=== PATIENT | female | born 1955 | race Caucasian/White ===

== ENCOUNTER 2020-10-06 07:16 | Day surgery (SDC) | payer BC ==
[~2020-10-06] VITALS: Ht 160 cm; Wt 71.0 kg
[~2020-10-06 07:16] MED LIST: BACITRACIN INJECTION 50,000 UNIT, SODIUM CHLORIDE 0.9% IRRIGATIO 500 ML IR ONE; HEParin (CATH LAB) 0 ML IV ONE; LIDOCAINE 1% INJ 20 ML 20 ML VIAL ONE; NS IV 1000 ML 1,000 ML IV SCH; NS IV 1000 ML 1,000 ML ONE; ceFAZolin INJECTION 1,000 MG VIAL IV ONE
[2020-10-06] MEDS ORDERED: NS IV 1000 ML 1,000 ML ONE ×5 (07:17→11:38)
[2020-10-06] MEDS ORDERED: ROCURONIUM 10 MG/ML 5 ML SYRINGE IV ONE (07:17)
[2020-10-06] MEDS ORDERED: LIDOCAINE 1% INJ 20 ML 20 ML VIAL ONE (07:17)
[2020-10-06] MEDS ORDERED: HEParin (CATH LAB) 1,000 ML IV ONE (07:17)
[2020-10-06] MEDS ORDERED: ceFAZolin INJECTION 1,000 MG ONE (07:17)
[2020-10-06] MEDS ORDERED: ETOMIDATE IV SOLN 20 MG/10 ML VIAL IV ONE (07:17)
[2020-10-06] MEDS ORDERED: SUCCINYLCHOLINE INJ 100 MG/5 ML SYR/VIAL INJ ONE (07:17)
[2020-10-06] MEDS ORDERED: ceFAZolin INJECTION 1,000 MG VIAL IV ONE (07:30)
[2020-10-06] MEDS ORDERED: BACITRACIN INJECTION 50,000 UNIT, SODIUM CHLORIDE 0.9% IRRIGATIO 500 ML IR ONE ×2 (07:30)
[2020-10-06] MEDS ORDERED: NS IV 1000 ML 1,000 ML IV ONE (07:30)
--- NOTE | 2020-10-06 07:34 | Conscious Sedation/ASA ---
Conscious Sedation Pre-Proced Time 07:34 ASA Score 3 For ASA 3 and 4: Consider anesthesia and medical clearance. Also, for patients with a history of failed moderate sedation consider anesthesia. Airway Lungs Heart ASA score ASA 1: a normal healthy patient ASA 2: a patient with a mild systemic disease (mid diabetes, controlled hypertension, obesity x ASA 3: a patient with a severe systemic disease that limits activity (angina, COPD, prior Myocardial infarction) ASA 4: a patient with an incapacitating disease that is a constant threat to life (CHF, renal failure) ASA 5: a moribund patient not expected to survive 24 hrs. (ruptured aneurysm) ASA 6: a declared brain- patient whose organs are being harvested. For emergent operations, add the letter E after the classification Mallampati Classification Grade 3 Sedation Plan Analgesia, Amnesia, Plan communicated to team members, Discussed options with patient/fam, Discussed risks with patient/fam The patient is an appropriate candidate to undergo the planned procedure, sedation, and anesthesia. The patient immediately re-assessed prior to indication. KAYE DEVRIES MD Oct 06, 2020 07:34
[2020-10-06 07:35] VITALS: BP 162/95
[2020-10-06 07:40] LABS: BILIRUBIN,URINE NEGATIVE (NEGATIVE); CLARITY,URINE CLEAR; COLOR,URINE YELLOW; GLUCOSE, URINE (UA) NEGATIVE (NEGATIVE); KETONES,URINE NEGATIVE (NEGATIVE); LEUKOCYTE ESTERASE ,URINE NEGATIVE (NEGATIVE); NITRITE,URINE NEGATIVE (NEGATIVE); PROTEIN,URINE NEGATIVE (NEGATIVE)
[2020-10-06 07:41] LABS: HEMATOCRIT 39 % (35-52); MEAN CORPUSCULAR HEMOGLOBIN 35 pg (25-34); MEAN CORPUSCULAR HGB CONC 34 g/dL (32-36); MEAN CORPUSCULAR VOLUME 104 fL (80-99); MEAN PLATELET VOLUME 9.7 fL (9.0-12.2); PLATELET COUNT 336 10^3/uL (130-400); WHITE BLOOD COUNT 9.3 10^3/uL (4.3-11.0)
[2020-10-06] MEDS ORDERED: ASPI-999 PO (07:44)
[2020-10-06] MEDS ORDERED: CHLO25TA22 PO (07:44)
[2020-10-06] MEDS ORDERED: IRBE75TA9 PO (07:44)
[2020-10-06] MEDS ORDERED: ROSU20TA2 PO (07:44)
[2020-10-06 07:56] LABS: BACTERIA,URINE MODERATE /HPF; RBC,URINE 0-2 /HPF; WBC,URINE RARE /HPF
[2020-10-06] MEDS ORDERED: NS (IVPB) 50 ML ONE (07:56)
[2020-10-06 08:02] LABS: INR 0.9 (0.8-1.4); PROTHROMBIN TIME PATIENT 12.8 SEC (12.2-14.7)
[2020-10-06 08:08] LABS: ALBUMIN 4.3 GM/DL (3.2-4.5); BILIRUBIN,TOTAL 0.5 MG/DL (0.1-1.0); CALCIUM 10.4 MG/DL (8.5-10.1); CREATININE SERUM 1.06 MG/DL (0.60-1.30); POTASSIUM 3.7 MMOL/L (3.6-5.0); TOTAL PROTEIN 7.3 GM/DL (6.4-8.2)
--- NOTE | 2020-10-06 08:18 | Diagnostic Imaging Report ---
INDICATION: Pre-pacemaker placement. Time of exam: 7:41 AM The heart size is normal. The pulmonary vascularity is unremarkable. The lungs are clear. No infiltrate, effusion or pneumothorax is detected. IMPRESSION: No acute cardiopulmonary process is detected. Dictated by: Dictated on workstation # [id number]
[2020-10-06] MEDS ORDERED: MIDAZOLAM 5 MG/5 ML (VERSED) VIAL ONE ×2 (09:38→10:13)
[2020-10-06] MEDS ORDERED: fentaNYL INJ 100 MCG/2 ML AMP ONE ×2 (09:38→10:13)
[2020-10-06] MEDS ORDERED: meTOprolol 5 MG/5 ML (LOPRESSOR) VIAL ONE (10:34)
[2020-10-06] MEDS ORDERED: NS IV 500 ML 500 ML IV SCH (11:15)
[2020-10-06 11:21] LABS: HEMOGLOBIN 10.5 g/dL (11.5-16.0)
[2020-10-06] MEDS ORDERED: PROPOFOL DRIP (ICU) 100 ML IV ONE ×2 (12:10→13:49)
--- NOTE | 2020-10-06 12:29 | Anesthesia-Procedure Note ---
Procedures/Interventions Procedure Start/Stop/Diagnosis Date of Procedure: Oct 06, 2020 Start Time: 11:40 Referring Physician: Nathaly Brief History Called to urgently intubate a patient in cath lab radiological technologist. Stop Time: 11:46 Intubation RSI: Yes 100% pre-Ox, [id number]: Yes Intubation Method: orotracheal MAC (size used 1-4): 3 Videoscope used: No Medications: Etomidate (6mg), Rocuronium (50mg), Succinylcholine (100mg) Mask Ventilation: positive Positive End Tide CO2: Yes Breath Sounds after Intubation: bilateral-equal ETT Securred @ (cm): 22 Intubated with ease: Yes Intubation Complications: no complications Care turned over to: [facility] staff DI CUELLO CRNA Oct 06, 2020 12:29
[2020-10-06] MEDS ORDERED: PATIENT MAY USE OWN MEDS, ALL PO SCH (12:45)
[2020-10-06] MEDS ORDERED: NS IV 1000 ML 1,000 ML IV SCH (12:45)
--- NOTE | 2020-10-06 12:45 | Permanent Pacemaker Implant ---
Dual Chamber Pacemaker Implant PROCEDURE PHYSICIAN: Vanna Andersen DUAL CHAMBER PACEMAKER IMPLANTATION: DATE OF PROCEDURE: 10/06/20 REFERRING PHYSICIAN: Dr. Mark Simon ATTENDING PHYSICIAN: Dr. Mark Simon INDICATION: Sinus node dysfunction PREOPERATIVE DIAGNOSIS: Sinus node dysfunction POSTOPERATIVE DIAGNOSIS: Sinus node dysfunction HISTORY: Dual-chamber permanent pacemaker was recommended. PROCEDURE PERFORMED: 1. Dual-chamber permanent pacemaker implantation. 2. Fluoroscopy. 3. Central venous access. 4. Pericardiocentesis ANESTHESIA: Local anesthesia, conscious sedation. COMPLICATIONS: None. ESTIMATED BLOOD LOSS:20 mL. SPECIMENS: None. ORAL ANTICOAGULATION: None. FLUOROSCOPY TIME: FLUOROSCOPY DOSE: CONTRAST DOSE: PROCEDURE DETAILS: The patient is a [address] Mark Simon, she has underlying s inus node dysfunction with severe bradycardia and long pauses up to 3 seconds. Patient needed a dual-chamber pacemaker she was scheduled for the procedure in [place] due to insurance coverage. Patient was brought to the cardiac catheterization laboratory, prepped in a sterile fashion, local anesthesia applied then using modified Seldinger technique I was able to access the left subclavian vein and placed J-wire's in the vein, sheath was placed in the vein then I proceeded with ventricular lead, the first position had R wave measuring at 4, impedance was over 2000. The lead was moved to a different position had R wave sensing at 9, impedance was 700 and threshold were 3 mV. I decided to leave the lead in place and retested. The sheath was removed and I placed a second sheath then I proceeded with right atrial lead placement, good sensing and capture activity with the atrial lead position. At that point I tested the ventricular lead again and it had poor capture. Decided to reposition it I tried to other positions without good sensing or capture. During that. Patient became bradycardic and had long pauses and hypotensive I proceeded with initiating atrial pacing check the blood pressure continue to be unable to get that good blood pressure. Tried multiple times to find a good spot for the ventricular lead without success patient was becoming unstable I decided to remove the ventricular lead and I attached to atrial lead to a dual-chamber device and capped the ventricular port. And placed the device in the pocket and stapled the pocket closed. Transthoracic echo showed moderate size effusion with questionable right atrial collapse, the right ventricle was not collapsing. Due to her severe hypotension I decided to proceed with emergency pericardiocentesis and used subxiphoid stick due to the fact that at the apical area the amount of fluid was 0.8 in diameter while the subcostal view I had 2 centimeter, was able to retrieve 25 to 35 mL of fluid, bloody, I attempted to advance a J-wire without success subsequently I stopped at that point and testing the fluid did not show that the fluid is clotting probably it was pericardial fluid, on transthoracic echo the amount of fluid appeared to be less and her blood pressure became more stable. Patient received 4 L of saline. I contacted Dr. Mark Simon discussed with him the management and offer transferring her to a tertiary care center. After discussing with her daughter they requested to stay in [place] due to insurance coverage, I contacted [facility] who accepted the patient at that point. DEVICE INFORMATION: SHAD XT [id number] RA LEAD: [place] with serial number [id number] RV LEAD: Did not place a ventricular lead it was retracted and removed IMMEDIATE POSTOPERATIVE DEVICE INTERROGATION: Atrial lead threshold 0.4 ms at 0.5 V, impedance 440, P wave 3.0 mV. PLAN: The patient transferred to the ICU. Arrangement to transfer to a tertiary care center, patient was intubated electively and will continue to monitor blood pressure. CONCLUSION: 1. Complication of dual-chamber pacemaker implantation with pericardial tamponade and successful thoracentesis 2. Implantation of dual-chamber pacemaker and keeping the atrial lead in position due to episode of bradycardia and long sinus pause Hospital course Patient will be admitted to intensive care unit on the ventilator, evaluate chest x-ray, monitor H&H, planning to wean her off the ventilator as soon as possible, monitor with echo for recurrent pericardial effusion, arrangement to place a ventricular lead as soon as possible, start antibiotic coverage FINAL DIAGNOSIS: Sinus node dysfunction Cardiac pacemaker Cardiac tamponade Hypertension Hyperlipidemia VANNA ANDERSEN MD Oct 06, 2020 12:45 pm
--- NOTE | 2020-10-06 12:50 | Diagnostic Imaging Report ---
INDICATION: Post-pacemaker placement. Time of exam 12:36 PM Correlation is made with prior chest from earlier same day. Patient has been intubated. ET tube has tip in good position above the sulaiman. Nasogastric tube passes below the diaphragm. There is a single lead left subclavian cardiac pacemaker with lead tip in the region right atrium. Lungs are clear. No infiltrates are seen. There is no pneumothorax. IMPRESSION: Satisfactory endotracheal tube and nasogastric tubes. No acute features detected. Dictated by: Dictated on workstation # [id number]
[2020-10-06 12:54] VITALS: BP 230/120
[2020-10-06 13:00] VITALS: BP 165/116
[2020-10-06] MEDS ORDERED: THIAMINE INJECTION 100 MG, FOLIC ACID INJECTION 1 MG, VITAMIN MULTI INJECTION 10 ML, MA... IV SCH ×5 (13:15)
[2020-10-06] MEDS ORDERED: LORazepam 1 MG (ATIVAN) TAB PO PRN (13:15)
[2020-10-06] MEDS ORDERED: LORazepam INJ 2 MG/ML (ATIVAN) VIAL IM/IV PRN (13:15)
[2020-10-06] MEDS ORDERED: ONDANSETRON 4 MG (ZOFRAN) ORAL DISSOLVE TAB SL PRN (13:15)
[2020-10-06] MEDS ORDERED: SENNA W/DOCUSATE (SENOKOT S) TABLET PO PRN (13:15)
[2020-10-06] MEDS ORDERED: LORazepam INJ 2 MG/ML (ATIVAN) VIAL IV PRN (13:15)
[2020-10-06] MEDS ORDERED: 1/2 NS IV SOLUTION 1,000 ML IV PRN (13:15)
[2020-10-06] MEDS ORDERED: D5 1/2 NS 1000 ML IV SOLUTION 1,000 ML IV PRN (13:15)
[2020-10-06] MEDS ORDERED: ANTACID SUSP 30 ML UDC (MYLANTA) PO PRN (13:15)
[2020-10-06] MEDS ORDERED: ONDANSETRON 4 MG/2 ML (SDV) Z0FRAN IV PRN (13:15)
[2020-10-06] MEDS ORDERED: ceFAZolin INJECTION 1,000 MG in WATER (STERILE) FOR INJECTION 10 ML IV SCH (18:00)
[2020-10-07] MEDS ORDERED: THIAMINE INJECTION 100 MG, FOLIC ACID INJECTION 1 MG, VITAMIN MULTI INJECTION 10 ML, MA... IV SCH ×5 (09:00)
== END 2020-10-06 13:50 | disposition short-term general hospital (02) ==
LOC: CATH 07:16 → ICU 13:04 → CATH 13:50
PROVIDERS: ATTEND Internal Medicine Cardiovascular Disease
DX: I49.5 Sick sinus syndrome (principal); I10 Essential (primary) hypertension; E78.5 Hyperlipidemia, unspecified; Z95.0 Presence of cardiac pacemaker
CPT/HCPCS: 33016; 33206; 71045; 80053; 80061; 81000; 85014; 85018; 85027; 85610; 85730; 86850; 86900; 86901; 86920; 87070; 87081; 87205; 93306; 93308; 94002; 94799; C1785; C1898; 36415